=== PATIENT | female | born 1980 | race Asian ===

== ENCOUNTER 2023-03-17 07:16 | Emergency (ER) | payer MEDICAID, OTHER ==
[~2023-03-17] VITALS: Ht 152.4 cm; Wt 62.6 kg
[2023-03-17 07:29] VITALS: TEMP 98.4
--- NOTE | 2023-03-17 07:35 | NUR ---
PT WALKED INTO ER C/O SHORTNESS OF BREATH SINCE 3 DAYS AGO, WORSE LAST NIGHT. PT STATES "MY INHALER DOES NOT WORK". WHEEZING ON ALL LUNG NEWTON AUSCULTATED. PT AMBULATED TO BED WITH STEADY GAIT. AAOX4. CONNECTED TO MONITOR. VITAL SIGNS WNL. AWAITING MD FOR EVAL.
--- NOTE | 2023-03-17 07:38 | NUR ---
AT BEDSIDE FOR EVAL
[2023-03-17] MEDS ORDERED: ALBUTEROL FS 2.5 MG/3 ML VIAL.NEB ONE (07:52)
[2023-03-17] MEDS ORDERED: IPRATROPIUM NEB FS 0.5 MG/2.5 ML AMPUL.NEB ONE (07:52)
[2023-03-17] MEDS ORDERED: ALBUTEROL FS 2.5 MG/3 ML VIAL.NEB NEB ONE (08:00)
[2023-03-17] MEDS ORDERED: predniSONE 20 MG TABLET PO ONE (08:00)
[2023-03-17] MEDS ORDERED: IPRATROPIUM NEB FS 0.5 MG/2.5 ML AMPUL.NEB NEB ONE (08:00)
[2023-03-17] MEDS ORDERED: predniSONE 20 MG TABLET ONE (08:10)
[2023-03-17] MEDS ORDERED: PRED20TA PO (09:11)
[2023-03-17] MEDS ORDERED: ALBU18HF2 INH (09:11)
[2023-03-17 09:19] VITALS: BP 122/80
--- NOTE | 2023-03-17 09:19 | NUR ---
Patient discharged to home in stable condition. Written and verbal after care instructions given. Patient verbalizes understanding of instruction.
== END 2023-03-17 09:20 | disposition home or self-care (01) ==
LOC: ER 07:27
DX: J45.901 Unspecified asthma with (acute) exacerbation (principal)
CPT/HCPCS: 99283; 94640; J7512